=== PATIENT | female | born 1945 | race African-American/Black ===

== ENCOUNTER 2017-02-03 13:09 | Day surgery (SDC) | payer MEDICAID, MEDICARE ==
[2017-02-03] MEDS ORDERED: NACL 0.9% 1000 ML 1,000 ML IV SCH (15:00)
--- NOTE | 2017-02-03 15:11 | Anesthesia Day of Surgery ---
Anesthesia Day of Surgery - Day of Surgery Patient Examined: Yes Patient H&P Reviewed: Yes Patient is NPO: Yes
--- NOTE | 2017-02-03 15:13 | Anesthesia Consultation ---
Anesthesia Consult and Med Hx Date of service: 02/03/17 - Airway Anesthetic Teeth Evaluation: Edentulous ROM Head & Neck: Adequate Mental/Hyoid Distance: Adequate Mallampati Class: Class II Intubation Access Assessment: Probably Good - Pulmonary Exam CTA: Yes - Cardiac Exam Cardiac Exam: RRR - Pre-Operative Health Status ASA Pre-Surgery Classification: ASA2 Proposed Anesthetic Plan: MAC - Pulmonary Hx Smoking: No Hx Asthma: No - Cardiovascular System Hx Hypertension: No (high cholesterol) Hx Heart Attack/AMI: No - Central Nervous System Hx Seizures: No CVA: No - Gastrointestinal Hx Gastroesophageal Reflux Disease: Yes (well controlled with meds) - Endocrine Hx Renal Disease: No (hx of kidney stones (5 years ago)) Hx Liver Disease: Yes (Hep C 10 years ago, cleared now) Hx Non-Insulin Dependent Diabetes: No - Other Systems Hx Cancer: No - Additional Comments Anesthesia Medical History Comments: NAC
[2017-02-03] MEDS ORDERED: DIPRIVAN 10 MG/ML IV ONE (16:58)
[2017-02-03] MEDS ORDERED: XYLOCAINE MPF 2% ONE (17:00)
[2017-02-03] MEDS ORDERED: XYLOCAINE TOPICAL 2% ONE (17:37)
--- NOTE | 2017-02-03 18:06 | Operative Report ---
Operative Report Operative Report: Date of procedure: 02/03/2017 Procedure: Colonoscopy with snare polypectomy and hot biopsy polypectomy. Hemorrhoidal Band Ligation. Attending physician: Bang Leigh MD Critical Care Technician: Bang Leigh MD Indication: Patient is a 71-year-old female who presents for colonoscopy. She has a history of rectal bleeding and rectal pain. A colonoscopy serves to evaluate patients symptoms and also for colorectal cancer screening. Consent: Informed consent was obtained after advising the patient and family ( son)regarding nature of this procedure, its indications, potential benefits as well as possible complications including but not limited to bleeding perforation and adverse reaction to medication, infection, fecal incontinence, anorectal pain as well as other cardiopulmonary complications. An informed written and verbal consent was then obtained after due opportunity was provided for questions and answers. Monitoring: Patient was monitored continuously with pulse oximetry and electrocardiographic recordings as well as blood pressure recordings. Vital signs remained stable throughout this procedure with no untoward events. Preoperative assessment: Patient was assessed immediately prior to this procedure for capacity to tolerate monitored anesthesia care and moderate sedation as well as general anesthesia. Patient's ASA classification is 2, Mallampati class is 2, Hyomental distance is 3. Instrument: [employer] [facility]inon video colonoscope. Multiple band ligator: Speedband SuperView Super 7 ([employer]) Medications: Propofol given intravenously in divided doses. For details please refer to anesthesia records. Description of procedure: Patient was placed in the left lateral decubitus position after achieving sedation, a digital rectal examination was performed following which the colonoscope was introduced into the anal verge and advanced to the cecum which was identified by the cecal valve, the appendiceal orifice, as well as by the cecal strap and direct transillumination. The colonoscope was subsequently withdrawn with careful inspection of all mucosal surfaces. Patient tolerated this procedure well and was subsequently taken to the recovery room. The following findings were noted. Findings: Patient had a semi pedunculated 8 mm polyp in the ascending colon which was removed by snare electrocautery. Patient had a 6 mm flat polyp in the sigmoid colon which was removed by hot biopsy polypectomy. The rest of the colon to the cecum was normal, except for areas of retained liquid stool, which irrigated and suctioned off. On the retroflex view at the anal verge, patient had prominent large friable internal hemorrhoids. After completing the colonoscopic examination, the [employer] video endoscope was preloaded with the multiple band ligator. It was then reintroduced into the rectum after using lidocaine gel to numb the rectum. Following this, in a retroflexed view, multiple bands were applied over the internal hemorrhoids. In all, all 3 bands were applied due to size of internal hemorrhoids. All bands were applied above the dentate line. Patient tolerated the procedure well with no untoward events. Impression: Ascending colon polyp, status post snare polypectomy. Sigmoid polyp status post hot biopsy polypectomy. Prominent friable Internal hemorrhoids, status post successful hemorrhoidal band ligation. Plan: Follow pathology report and repeat colonoscopy in 5 years if polyps are adenomatous. Daily sitz baths. High-fiber diet. Patient to apply lidocaine ointment 5% per rectum every 6 hours as needed. Anusol HC suppositories per rectum every night. Patient to use stool softeners as needed. Miralax 17 g in 8 ounce glass of water has been prescribed. Tramadol 50 mg every 6 hours as needed for pain. Patient is scheduled for further outpatient follow-up. Patient is further instructed that if she developes persistent bleeding and or fevers to call the office immediately.
--- NOTE | 2017-02-03 18:07 | Discharge Summary ---
Short Stay Discharge Plan Activity: advance as tolerated Weight Bearing Status: Weight Bear as Tolerated Diet: regular
[2017-02-03 18:20] VITALS: BP 129/74
== END 2017-02-03 13:10 | disposition home or self-care (01) ==
LOC: GIO 13:09
PROVIDERS: ATTEND Internal Medicine Gastroenterology
DX: K63.5 Polyp of colon (principal); K64.8 Other hemorrhoids; E78.00 Pure hypercholesterolemia, unspecified; K21.9 Gastro-esophageal reflux disease without esophagitis; Z79.899 Other long term (current) drug therapy; Z87.442 Personal history of urinary calculi; Z86.19 Personal history of other infectious and parasitic diseases
CPT/HCPCS: 45384; 45385; 88305; J2704; J7030

== ENCOUNTER 2019-06-19 11:49 | Outpatient (CLI) | payer MEDICARE ==
--- NOTE | 2019-06-20 08:12 | Mammography Report ---
DIGITAL SCREENING MAMMOGRAM WITH CAD, 06/19/2019 INDICATION: Routine screening mammography. TECHNIQUE: Digital bilateral 2D mammography was obtained in the craniocaudal and mediolateral obliq ue projections. This examination was interpreted with the benefit of Computer-Aided Detection analysi s. COMPARISON: 03/24/2017 FINDINGS: Breast Density: The breasts are almost entirely fatty. There is no evidence of dominant mass, suspicious calcifications or architectural distortion in eithe r breast. IMPRESSION: No mammographic evidence of malignancy. Follow up recommendation: Routine yearly BI-RADS Category 1: Negative. A "normal" or negative report should not discourage follow up or biopsy of a clinically significant f inding. A written summary of these findings will be mailed to the patient. The patient will be entered into a mammography reporting system which will generate a reminder letter for the patient's next appointmen t at the appropriate interval. The [employer] recommends yearly mammograms starting at age 40 and continuing as l lesly as a woman is in good health. Breast MRI is recommended for women with an approximate 20-25% or greater lifetime risk of breast cancer, including women with a strong family history of breast or ova nani cancer or who have been treated for Hodgkin's disease. Signer Name: Shekhar Ness MD Signed: 06/20/2019 8:07 AM Workstation Name: [id number]
== END 2019-06-19 11:50 | disposition home or self-care (01) ==
LOC: MAMMO 11:49
PROVIDERS: ATTEND Student in an Organized Health Care Education/Training Program
DX: Z12.31 Encounter for screening mammogram for malignant neoplasm of breast (principal)
CPT/HCPCS: 77067